=== PATIENT | female | born 2000 | race Caucasian/White ===

== ENCOUNTER 2021-10-15 08:35 | Inpatient (IN) | payer MEDICAID ==
[~2021-10-15] VITALS: Ht 160 cm; Wt 106.0 kg
[2021-10-15] MEDS ORDERED: EPHEDRINE SULFATE 50MG/ML VIAL ONE (09:32)
[2021-10-15] MEDS ORDERED: CEFAZOLIN SODIUM 1000MG/VIAL ONE (09:32)
[2021-10-15] MEDS ORDERED: PHENYLEPHRINE HCL 10 MG/ML 1ML (IV VIAL) IV ONE (09:32)
[2021-10-15] MEDS ORDERED: OXYTOCIN 10 UNITS/ML 1ML ONE (09:33)
[2021-10-15] MEDS ORDERED: DIPHENHYDRAMINE 50MG/ML VIAL ONE (09:33)
[2021-10-15] MEDS ORDERED: ONDANSETRON HCL 4MG/2ML INJ ONE (09:33)
[2021-10-15] MEDS: LACTATED RINGERS 1,000 ML IV SCH (10:43)
[2021-10-15 10:52] LABS: CLARITY URINE TURBID (CLEAR); COLOR URINE YELLOW (YELLOW); KETONES URINE NEGATIVE (NEGATIVE); LEUKOCYTE ESTERASE URINE 1+ (NEGATIVE); NITRITE URINE NEGATIVE (NEGATIVE); OCCULT BLOOD URINE NEGATIVE (NEGATIVE); PH URINE 8.5 (4.5-8.0); PROTEIN URINE TRACE (NEGATIVE)
[2021-10-15 10:58] LABS: BASOPHILS % 0.2 % (0.0-2.0); EOSINOPHILS % 0.1 % (0.0-5.0); HEMATOCRIT. 38.1 % (36.0-48.0); LYMPHOCYTES % 18.5 % (20.0-50.0); MEAN PLATELET VOLUME 9.2 fl (7.4-10.4); MONOCYTES % 10.8 % (2.0-8.0); NEUTROPHILS % 70.4 % (40.0-76.0); PLATELET 200 x1000/uL (130-400); RED BLOOD CELL COUNT 4.33 mill/uL (4.2-5.4); RED CELL DISTRIBUTION WIDTH 14.4 % (11.6-14.6)
[2021-10-15] MEDS ORDERED: CITRIC ACID/SODIUM CITRATE SOLN 30ML UDC PO SCH (11:00)
[2021-10-15 11:22] LABS: PARTIAL THROMBOPLASTIN TIME 29.3 sec (23.4-31.0); PROTHROMBIN TIME 10.9 sec (9.6-11.0)
[2021-10-15 12:09] LABS: *AMPHETAMINES SCREEN URINE NEGATIVE (NEGATIVE); *BARBITURATES SCREEN URINE NEGATIVE (NEGATIVE); *BENZODIAZEPINES SCREEN URINE NEGATIVE (NEGATIVE); *COCAINE SCREEN URINE NEGATIVE (NEGATIVE); CANNABINOID URINE SCREEN NEGATIVE (NEGATIVE); METHADONE URINE SCREEN NEGATIVE (NEGATIVE); OPIATES URINE SCREEN NEGATIVE (NEGATIVE); PHENCYCLIDINE URINE SCREEN NEGATIVE (NEGATIVE)
[2021-10-15 13:44] LABS: HEPATITIS B SURFACE ANTIGEN NEGATIVE
[2021-10-15] MEDS ORDERED: FENTANYL CITRATE/PF 50MCG/ML 2ML VIAL ONE (13:55)
[2021-10-15] MEDS ORDERED: MORPHINE SULFATE/PF 1MG/ML 10ML AMP ONE (13:55)
[2021-10-15] MEDS ORDERED: KETOROLAC 60MG/2ML VIAL IM ONE (15:02)
[2021-10-15] MEDS ORDERED: BUTORPHANOL TARTRATE 2 MG/ML VIAL IV PRN (15:15)
[2021-10-15] MEDS ORDERED: NALOXONE HCL 0.4 MG/ML 1ML VIAL IV PRN (15:15)
[2021-10-15] MEDS ORDERED: DIPHENHYDRAMINE 50MG/ML VIAL IV PRN (15:15)
[2021-10-15] MEDS ORDERED: OXYTOCIN 30 UNITS/500ML NS PMX 500 ML IV SCH (17:00)
[2021-10-15] MEDS ORDERED: RHO(D) IMMUNE GLOBULIN 300 MCG/SYR IM PRN (17:00)
[2021-10-15] MEDS ORDERED: IBUPROFEN 400MG TABLET PO PRN (17:00)
[2021-10-15] MEDS ORDERED: ONDANSETRON HCL 4MG/2ML INJ IV PRN (17:00)
[2021-10-15] MEDS ORDERED: DIPHENHYDRAMINE 25MG CAPSULE PO PRN (17:00)
[2021-10-15] MEDS ORDERED: LANOLIN OINT 7GM TUBE TOP PRN (17:00)
[2021-10-15] MEDS ORDERED: HYDROCODONE/ACETAMINOPHEN 5/325MG TABLET PO PRN (17:00)
[2021-10-15 17:30] VITALS: BP 112/80
[2021-10-15 19:30] VITALS: BP 116/63
[2021-10-15] MEDS: KETOROLAC 30MG/ML VIAL IV SCH (19:51)
[2021-10-15] MEDS ORDERED: DOCUSATE SODIUM 100MG CAPSULE PO SCH (21:00)
[2021-10-15] MEDS ORDERED: TETANUS, DIPHTHERIA, PERTUSSIS VAC/PF 0.5ML (>10YR OLD) IM ONE (23:30)
[2021-10-16] VITALS: BP 104/58
[2021-10-16] MEDS: LACTATED RINGERS 1,000 ML IV SCH ×2 (00:28→10:06)
[2021-10-16] MEDS: KETOROLAC 30MG/ML VIAL IV SCH (02:17)
[2021-10-16 04:00] VITALS: BP 91/49
[2021-10-16 07:34] LABS: BASOPHILS % 0.2 % (0.0-2.0); EOSINOPHILS % 0.3 % (0.0-5.0); HEMATOCRIT. 34.1 % (36.0-48.0); HEMOGLOBIN. 11.6 g/dL (12.0-16.0); LYMPHOCYTES % 16.6 % (20.0-50.0); MEAN CORPUSCULAR HEMOGLOBIN 30.2 pg (28.0-32.0); MEAN CORPUSCULAR VOLUME 88.5 fL (81.0-99.0); MEAN PLATELET VOLUME 9.5 fl (7.4-10.4); MONOCYTES % 12.9 % (2.0-8.0); PLATELET 165 x1000/uL (130-400); RED BLOOD CELL COUNT 3.85 mill/uL (4.2-5.4); RED CELL DISTRIBUTION WIDTH 14.4 % (11.6-14.6)
[2021-10-16 08:00] VITALS: BP 93/52
[2021-10-16] MEDS: PRENATAL VIT/FE FUMARATE/FA TABLET PO SCH (10:06)
[2021-10-16] MEDS: HYDROCODONE/ACETAMINOPHEN 5/325MG TABLET PO PRN ×2 (11:30→16:24)
[2021-10-16 12:00] VITALS: BP 96/52
[2021-10-16 19:30] VITALS: BP 101/64
[2021-10-17] MEDS: HYDROCODONE/ACETAMINOPHEN 5/325MG TABLET PO PRN ×2 (03:57→09:05)
[2021-10-17 04:00] VITALS: BP 102/56
[2021-10-17 08:00] VITALS: BP 96/55
[2021-10-17] MEDS: PRENATAL VIT/FE FUMARATE/FA TABLET PO SCH (09:05)
[2021-10-17] MEDS ORDERED: IBUP-2030 MT (13:07)
== END 2021-10-17 14:25 | disposition home or self-care (01) | DRG 540 ==
LOC: 8 EST A/PP 08:35 → OBSVTOIN 08:36 → 8 EST LDRP 09:14 → 8EST 17:17
PROVIDERS: ADMIT Obstetrics & Gynecology; ATTEND Obstetrics & Gynecology
PROC: 10D00Z1 Extraction of Products of Conception, Low, Open Approach (ICD-10-PCS; principal; 2021-10-15)
PROC: 3E0R3BZ Introduction of Anesthetic Agent into Spinal Canal, Percutaneous Approach (ICD-10-PCS; 2021-10-15)
DX: O34.211 Maternal care for low transverse scar from previous cesarean delivery (principal); D62 Acute posthemorrhagic anemia; O99.02 Anemia complicating childbirth; Z3A.39 39 weeks gestation of pregnancy; Z37.0 Single live birth; Z20.822 Contact with and (suspected) exposure to COVID-19
CPT/HCPCS: 36415; 80305; 81003; 85025; 86592; 86703; 86762; 86850; 86900; 87340; 87426; 88307; 99281; G0378; J0595; J0690; J1200; J1885; J2274; J2370; J2405; J3010; J3490; J7120; A4315; J2590